=== PATIENT | female | born 1985 | race Caucasian/White ===

== ENCOUNTER 2017-02-18 23:53 | Emergency (ER) | payer SELFPAY ==
[~2017-02-18] VITALS: Ht 162.6 cm; Wt 62.0 kg
[2017-02-19] MEDS ORDERED: SODIUM CHLORIDE 0.9% 1,000 ML IV ONE (05:35)
[2017-02-19] MEDS ORDERED: KETOROLAC 30MG/ML VIAL IV ONE (05:45)
[2017-02-19 06:03] LABS: BASOPHILS % 0.6 % (0.0-2.0); EOSINOPHILS % 0.1 % (0.0-5.0); HEMATOCRIT. 34.6 % (36.0-48.0); HEMOGLOBIN. 11.7 g/dL (12.0-16.0); LYMPHOCYTES % 13.5 % (20.0-50.0); MEAN CORPUSCULAR HEMOGLOBIN 28.4 pg (28.0-32.0); MEAN CORPUSCULAR VOLUME 84.2 fL (81.0-99.0); MEAN PLATELET VOLUME 8.1 fl (7.4-10.4); MONOCYTES % 6.4 % (2.0-8.0); NEUTROPHILS % 79.4 % (40.0-76.0); PLATELET 293 x1000/uL (130-400); RED CELL DISTRIBUTION WIDTH 13.3 % (11.6-14.6)
[2017-02-19 06:05] LABS: CHLORIDE 103 mEq/L (98-107)
[2017-02-19 06:12] LABS: CLARITY URINE CLOUDY (CLEAR); COLOR URINE YELLOW (YELLOW); GLUCOSE URINE NEGATIVE (NEGATIVE); KETONES URINE 1+ (NEGATIVE); LEUKOCYTE ESTERASE URINE 2+ (NEGATIVE); NITRITE URINE NEGATIVE (NEGATIVE); OCCULT BLOOD URINE 3+ (NEGATIVE); PROTEIN URINE 1+ (NEGATIVE); SPECIFIC GRAVITY URINE 1.009 (1.005-1.030); UROBILINOGEN URINE 0.2 E.U./dL (0.2-1.0)
[2017-02-19 06:14] LABS: CARBON DIOXIDE 24 mEq/L (21-32)
[2017-02-19 08:03] VITALS: BP 99/65
== END 2017-02-19 08:15 | disposition left against medical advice (07) ==
LOC: EDBD 23:53 → ER 23:53
DX: N39.0 Urinary tract infection, site not specified (principal)
CPT/HCPCS: 36415; 80053; 81001; 81025; 85025; 87077; 87086; 87186; 96361; 96374; 99284; J1885; J7030; Z7610

== ENCOUNTER 2018-07-28 04:45 | Inpatient (IN) | payer MEDICAID ==
[~2018-07-28] VITALS: Ht 142.2 cm; Wt 76.7 kg
[2018-07-28] MEDS ORDERED: LACTATED RINGERS 1,000 ML IV SCH (05:39)
[2018-07-28] MEDS ORDERED: DEXT 5%/LR + PITOCIN 20UNITS/L 1,000 ML IV SCH (05:39)
[2018-07-28] MEDS ORDERED: CARBOPROST TROMETHAMINE 250 MCG/ML AMPUL IM PRN (05:45)
[2018-07-28] MEDS ORDERED: METHYLERGONOVINE MALEATE 0.2 MG/ML IM PRN (05:45)
[2018-07-28] MEDS ORDERED: MISOPROSTOL 100MCG TABLET VG SCH (05:45)
[2018-07-28] MEDS ORDERED: NALOXONE HCL 0.4 MG/ML 1ML VIAL IM PRN (05:45)
[2018-07-28] MEDS ORDERED: BUTORPHANOL TARTRATE 2 MG/ML VIAL IV PRN (05:45)
[2018-07-28] MEDS ORDERED: LIDOCAINE HCL 1% 20ML VIAL (Pyxis) INJ INFIL SCH (05:45)
[2018-07-28] MEDS ORDERED: AMPICILLIN 2,000 MG in SODIUM CHLORIDE 0.9% 100 ML IV NR (07:00)
[2018-07-28 07:27] LABS: BASOPHILS % 0.4 % (0.0-2.0); EOSINOPHILS % 1.2 % (0.0-5.0); HEMATOCRIT. 33.6 % (36.0-48.0); HEMOGLOBIN. 11.2 g/dL (12.0-16.0); MEAN CORPUSCULAR HEMOGLOBIN 27.9 pg (28.0-32.0); MEAN CORPUSCULAR VOLUME 83.5 fL (81.0-99.0); MEAN PLATELET VOLUME 8.9 fl (7.4-10.4); MONOCYTES % 8.2 % (2.0-8.0); NEUTROPHILS % 67.2 % (40.0-76.0); PLATELET 280 x1000/uL (130-400); RED BLOOD CELL COUNT 4.02 mill/uL (4.2-5.4); RED CELL DISTRIBUTION WIDTH 16.6 % (11.6-14.6)
[2018-07-28 07:29] LABS: PARTIAL THROMBOPLASTIN TIME 27.1 sec (23.4-31.0); PROTHROMBIN TIME 10.3 sec (9.1-11.1)
[2018-07-28] MEDS ORDERED: ACETAMINOPHEN WITH CODEINE 300/30MG TABLET PO PRN (07:30)
[2018-07-28] MEDS ORDERED: GLYCERIN/WITCH HAZEL LEAF MEDICATED PAD TOP PRN (07:30)
[2018-07-28] MEDS ORDERED: BISACODYL 10MG SUPP PR PRN (07:30)
[2018-07-28] MEDS ORDERED: IBUPROFEN 400MG TABLET PO PRN (07:30)
[2018-07-28 07:34] LABS: CLARITY URINE CLOUDY (CLEAR); COLOR URINE YELLOW (YELLOW); KETONES URINE NEGATIVE (NEGATIVE); LEUKOCYTE ESTERASE URINE NEGATIVE (NEGATIVE); NITRITE URINE NEGATIVE (NEGATIVE); OCCULT BLOOD URINE 2+ (NEGATIVE); PH URINE 5.5 (4.5-8.0); PROTEIN URINE TRACE (NEGATIVE); SPECIFIC GRAVITY URINE 1.019 (1.005-1.030); UROBILINOGEN URINE 0.2 E.U./dL (0.2-1.0)
[2018-07-28 07:53] LABS: *AMPHETAMINES SCREEN URINE NEGATIVE (NEGATIVE)
[2018-07-28 07:54] LABS: *BARBITURATES SCREEN URINE NEGATIVE (NEGATIVE); *BENZODIAZEPINES SCREEN URINE NEGATIVE (NEGATIVE)
[2018-07-28 07:55] LABS: *COCAINE SCREEN URINE NEGATIVE (NEGATIVE); CANNABINOID URINE SCREEN NEGATIVE (NEGATIVE); METHADONE URINE SCREEN NEGATIVE (NEGATIVE); OPIATES URINE SCREEN NEGATIVE (NEGATIVE); PHENCYCLIDINE URINE SCREEN NEGATIVE (NEGATIVE)
[2018-07-28 08:13] LABS: HEPATITIS B SURFACE ANTIGEN NEGATIVE
[2018-07-28] MEDS: DEXT 5%/LR + PITOCIN 20UNITS/L 1,000 ML IV SCH ×2 (08:37→08:53)
[2018-07-28 09:30] VITALS: BP 97/50
[2018-07-28 10:00] VITALS: BP 98/47
[2018-07-28 12:13] VITALS: BP 96/55
[2018-07-28] MEDS ORDERED: AMPICILLIN 1,000 MG in SODIUM CHLORIDE 0.9% 50 ML IV SCH (13:00)
[2018-07-28] MEDS: ACETAMINOPHEN WITH CODEINE 300/30MG TABLET PO PRN (17:07)
[2018-07-28 17:13] VITALS: BP 100/50
[2018-07-28 22:00] VITALS: BP 98/54
[2018-07-28] MEDS: SIMETHICONE 80MG TABLET CHEW PO SCH (22:50)
[2018-07-29] MEDS: ACETAMINOPHEN WITH CODEINE 300/30MG TABLET PO PRN ×2 (03:55→16:24)
[2018-07-29 07:13] LABS: BASOPHILS % 0.8 % (0.0-2.0); EOSINOPHILS % 2.1 % (0.0-5.0); HEMATOCRIT. 31.3 % (36.0-48.0); HEMOGLOBIN. 10.5 g/dL (12.0-16.0); LYMPHOCYTES % 19.6 % (20.0-50.0); MEAN PLATELET VOLUME 9.3 fl (7.4-10.4); MONOCYTES % 8.3 % (2.0-8.0); NEUTROPHILS % 69.2 % (40.0-76.0); PLATELET 286 x1000/uL (130-400); RED BLOOD CELL COUNT 3.73 mill/uL (4.2-5.4)
[2018-07-29 07:30] VITALS: BP 104/60
[2018-07-29] MEDS: PRENATAL VIT/FE FUMARATE/FA TABLET PO SCH (10:08)
[2018-07-29] MEDS: SIMETHICONE 80MG TABLET CHEW PO SCH ×3 (10:09→21:17)
[2018-07-29] MEDS: FERROUS SULFATE 325MG TABLET PO SCH (16:24)
[2018-07-29 16:59] VITALS: BP 107/64
[2018-07-29 20:43] VITALS: BP 105/65
[2018-07-29] MEDS ORDERED: TETANUS, DIPHTHERIA, PERTUSSIS VAC/PF 0.5ML (>7YR OLD) IM ONE (21:45)
[2018-07-30 06:09] VITALS: BP 102/62
[2018-07-30 08:36] VITALS: BP 115/75
[2018-07-30] MEDS: PRENATAL VIT/FE FUMARATE/FA TABLET PO SCH ×2 (09:00→10:18)
[2018-07-30] MEDS: SIMETHICONE 80MG TABLET CHEW PO SCH ×2 (09:00→10:18)
[2018-07-30] MEDS: FERROUS SULFATE 325MG TABLET PO SCH ×2 (09:00→10:18)
[2018-07-30] MEDS: ACETAMINOPHEN WITH CODEINE 300/30MG TABLET PO PRN (10:18)
== END 2018-07-30 13:00 | disposition home or self-care (01) | DRG 560 ==
LOC: L&D 04:45 → OBSVTOIN 04:45 → 7EST PP/OB 09:58
PROVIDERS: ADMIT Obstetrics & Gynecology; ATTEND Obstetrics & Gynecology
PROC: 10E0XZZ Delivery of Products of Conception, External Approach (ICD-10-PCS; principal; 2018-07-28 06:50)
DX: O42.913 Preterm premature rupture of membranes, unspecified as to length of time between rupture and onset of labor, third trimester (principal); O76 Abnormality in fetal heart rate and rhythm complicating labor and delivery; Z37.0 Single live birth; Z3A.36 36 weeks gestation of pregnancy
CPT/HCPCS: 36415; 76805; 76818; 80305; 86592; 86703; 86762; 86850; 86900; 87340; 90715; 99281; J0290; J2590; J7050; J7120